=== PATIENT | female | born 1975 | race Caucasian/White ===

== ENCOUNTER 2018-10-01 21:08 | Emergency (ER) | payer OTHER ==
[~2018-10-01] VITALS: Ht 157.5 cm; Wt 97.5 kg
[~2018-10-01 21:08] MED LIST: ACHYD1T PO; DCS100C PO; IBP800T PO; PREN1TAB14 PO; PREN1TAB25 PO
--- NOTE | 2018-10-01 21:53 | ED Back Pain ---
General Chief Complaint: Back Problems Stated Complaint: BACK PAIN Nursing Triage Note: PT TO ROOM #2 VIA ED W/C BY SON. JOSE [id number]. REPORTS LATE 09/29/18 AFTERNOON SHE "TWEAKED" HER BACK. REPORTS SHE HAS BEEN UNABLE TO CONTROL PAIN. DESCRIBES PAIN STABBING TO LOWER RT SIDE. DENIES INJURY. PT REPORTS IT IS COMMON FOR HER TO EXPERIENCE EPISODES OF LOWER BACK PAIN APPROX EVERY 6 MONTH, BUT USUALLY ABLE TO CONTROL PAIN WITH TYLENOL AND IBUPROFEN. Nursing Sepsis Screen: No Definite Risk Source of Information: Patient, Family (son) Exam Limitations: No Limitations History of Present Illness Date Seen by Provider: Oct 01, 2018 Time Seen by Provider: 21:53 Initial Comments Mimi presents to the emergency department with complaints of right low back pain beginning 09/29/18. Patient reports "tweaking" her back. Patient denies any known injury. States these episodes occur 1-2 times per year. States she is usually able to take Tylenol and ibuprofen with improvement in symptoms. Denies bowel or bladder incontinence. Denies numbness, tingling, or pain radiating down the lower extremities. Denies abdominal pain. Location: Paraspinous Muscles Timing/Duration: 1-2 Days, Constant Pain/Injury Location: Back Radiation: Other (denies radiation) Method of Injury: Unknown Modifying Factors: Worse With Movement Associated Symptoms: muscle spasms; No fever, No weakness, No numbness in legs/ feet, No tingling in legs/feet, No sensory/motor loss; lower back pain; No loss of bladder control, No loss of bowel control Allergies and Home Medications Allergies Coded Allergies: No Known Drug Allergies (Unverified , 08/23/12) Home Medications Docusate Sodium 100 Mg Capsule, 100 MG PO BID, (Reported) Hydrocodone Bit/Acetaminophen 1 Tab Tablet, 1-2 TAB PO Q3H PRN, (Reported) Ibuprofen 800 Mg Tab, 800 MG PO Q6H PRN, (Reported) Ibuprofen 800 Mg Tablet, 800 MG PO Q8H PRN for PAIN Prescribed by: MEGHANA LYLES on 10/01/182230 Orphenadrine Citrate 100 Mg Tablet.er, 100 MG PO BID PRN for SPASMS Prescribed by: MEGHANA LYLES on 10/01/182230 Prednisone 20 Mg Tab, 40 MG PO DAILY Prescribed by: MEGHANA LYLES on 12/22/18 2231 Vits W-Ca,Fe,Fa(<1MG) 1 Each Tablet, 1 EACH PO DAILY, (Reported) Patient Home Medication List Home Medication List Reviewed: Yes Review of Systems Constitutional: No chills, No diaphoresis, No fever, No malaise Respiratory: No cough, No phlegm, No short of breath Cardiovascular: No chest pain, No edema, No palpitations Gastrointestinal: No abdominal pain, No constipation, No diarrhea, No loss of appetite, No nausea, No vomiting Genitourinary: No decreased output, No dysuria, No frequency, No hematuria, No pain Musculoskeletal: see HPI, back pain; No joint pain Skin: no symptoms reported Psychiatric/Neurological: Denies Numbness, Denies Paresthesia, Denies Tingling , Denies Weakness All Other Systems Reviewed Negative Unless Noted: Yes (Negative excepted noted.) Past [id number] Hx Past Med/Social Hx: Reviewed Nursing Past Med/Soc Hx Patient Social History Alcohol Use: Denies Use Recreational Drug Use: No Smoking Status: Never a Smoker 2nd Hand Smoke Exposure: No Recent Foreign Travel: No Contact w/Someone Who Travel: No Recent Infectious Disease Expo: No Recent Hopitalizations: Yes (CHILDBIRTH, ) Physical Abuse: No Sexual Abuse: No Seasonal Allergies Seasonal Allergies: No Past Medical History Surgeries: Yes (C/S X2, LAP MALINDA, RIGHT CARPAL TUNNEL) Respiratory: No Cardiac: No Neurological: No Reproductive Disorders: No Gastrointestinal: Yes Musculoskeletal: No Endocrine: No HEENT: No Cancer: No Psychosocial: No Integumentary: No Blood Disorders: No Family Medical History Reviewed Nursing Family Hx No Pertinent Family Hx Physical Exam Vital Signs Vital Signs - First Documented 10/01/18 21:25 Temp 98.4 Pulse 93 Resp 18 B/P (MAP) 145/79 (101) Pulse Ox 96 O2 Delivery Room Air Capillary Refill : Less Than 3 Seconds Height, Weight, BMI Height: 5'2.00" Weight: 215lbs. oz. [id number]; BMI Method:Stated General Appearance: No Apparent Distress, WD/WN HEENT: PERRL/EOMI, Pharynx Normal Neck: Full Range of Motion, Normal Inspection, Non Tender, Supple Cardiovascular: Regular Rate, Rhythm, No Edema, No Murmur, Normal Peripheral Pulses Respiratory: Lungs Clear, Normal Breath Sounds, No Accessory Muscle Use, No Respiratory Distress Peripheral Pulses: 2+ Dorsalis Pedis (R), 2+ Left Dors-Pedis (L), 2+ Radial Pulses (R), 2+ Radial Pulses (L) Gastrointestinal: Normal Bowel Sounds, No Organomegaly, No Pulsatile Mass, Non Tender, Soft; No Distended Back: Normal Inspection, No Vertebral Tenderness, Decreased Range of Motion, Muscle Spasm (rt low back paraspinous muscle spasm with TTP.) Extremity: Normal Capillary Refill, Normal Inspection, Normal Range of Motion, Non Tender, No Calf Tenderness, No Pedal Edema Neurologic/Psychiatric: Alert, Oriented x3, No Motor/Sensory Deficits, Normal Mood/Affect Skin: Normal Color, Warm/Dry Progress/Results/Core Measures Results/Orders My Orders Orders - MEGHANA LYLES Hydrocodone/Apap 5/325 Tablet (Lortab 5 (10/01/18 22:19) Ketorolac Injection (Toradol Injection) (10/01/18 22:19) Orphenadrine Injection (Norflex Injectio (10/01/18 22:19) Vital Signs/I&O 10/01/18 10/01/18 21:25 23:04 Temp 98.4 98.4 Pulse 93 85 Resp 18 18 B/P (MAP) 145/79 (101) 145/79 (101) Pulse Ox 96 99 O2 Delivery Room Air Room Air Blood Pressure Mean: 101 Departure Communication (Admissions) Patient seen and evaluated. Patient was given Toradol, Norflex, and Lortab. Patient reports improvement in symptoms with medications. Plan for discharge to home. Impression Primary Impression: Strain of tendon of back Qualified Codes: S39.012A - Strain of muscle, fascia and tendon of lower back , initial encounter Disposition: HOME, SELF-CARE Condition: Improved Departure-Patient Inst. Decision time for Depature: 22:30 Referrals: NO,LOCAL PHYSICIAN (PCP) Primary Care Physician Patient Instructions: Lumbar Muscle Strain (DC) Add. Discharge Instructions: All discharge instructions reviewed with patient and/or family. Voiced understanding. Medications as instructed. Tylenol extra strength over-the- counter as directed for pain. Use a heating pad or hot packs as needed for pain. Avoid lifting, pushing, pulling, twisting, bending, climbing 7 days. Follow-up with your family practitioner for recheck as an outpatient if no improvement in symptoms. Return to the emergency department for worsened symptoms or any other concerns. Scripts Orphenadrine Citrate (Orphenadrine Citrate) 100 Mg Tablet.er 100 MG PO BID PRN for SPASMS, #14 TAB 0 Refills Prov: MEGHANA LYLES 10/01/18 Prednisone (Prednisone) 20 Mg Tab 40 MG PO DAILY, #10 TAB 0 Refills Prov: MEGHANA LYLES 10/01/18 Ibuprofen (Ibuprofen) 800 Mg Tablet 800 MG PO Q8H PRN for PAIN, #20 TAB 0 Refills Prov: MEGHANA LYLES 10/01/18 Work/School Note: Local Medical Staff Listing MEGHANA LYLES Oct 01, 2018 21:53
[2018-10-01] MEDS ORDERED: ORPHENADRINE 60 MG/2 ML (NORFLEX) AMP IM STA (22:19)
[2018-10-01] MEDS ORDERED: KETOROLAC 60 MG/2 ML VIAL IM STA (22:19)
[2018-10-01] MEDS ORDERED: HYDROcodone/APAP 5 MG/325 MG (LORTAB) TAB PO STA (22:19)
[2018-10-01] MEDS ORDERED: IBUP-1780 PO (22:31)
[2018-10-01] MEDS ORDERED: PRD20T PO (22:31)
[2018-10-01] MEDS ORDERED: ORPH100T PO (22:31)
[2018-10-01 23:04] VITALS: BP 145/79
== END 2018-10-01 23:07 | disposition home or self-care (01) ==
LOC: EDUNIT# 21:08 → ER 21:09
DX: S39.012A Strain of muscle, fascia and tendon of lower back, initial encounter (principal); X50.1XXA Overexertion from prolonged static or awkward postures, initial encounter
CPT/HCPCS: 99284